=== PATIENT | male | born 1960 | race Caucasian/White ===

== ENCOUNTER → 2016-10-13 | Outpatient (CLI) | payer MEDICARE, MEDICAID ==
--- NOTE | 2016-10-13 10:47 | RADIOLOGY REPORT (SQ) ---
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 Images reviewed with lung, soft tissue and bone windows. Reconstructed coronal and sagittal MPR images reviewed. All images stored on PACS. All CT scanners at this facility use dose modulation, iterative reconstruction, and/or weight based d osing when appropriate to reduce radiation dose to as low as reasonably achievable (ALARA). [facility]: Dose Right [facility]: CareDose [facility]: Dose Right [facility]: Teradose 4D [facility]: Wiki-PR CONTRAST TYPE AND DOSE: contrast/concentration: Isovue 370.00 mg/ml; Total Contrast Delivered: 80.0 ml; Total Saline Delivered: 55.0 ml RENAL FUNCTION: Creatinine 0.75 RADIATION DOSE: Up-to-date CT equipment and radiation dose reduction techniques were employed. CTDIv ol: 9.1 mGy. DLP: 351 mGy-cm. . LIMITATIONS: None. FINDINGS: LUNGS AND PLEURA: Prior CT exam from 06/15/2006 was reviewed. At the tongue, patient had c avitary pneumonia in the right lower lobe adjacent to the major fissure, and dense consolidation in t he superior segment right lower lobe at the upper edge of the major fissure. On today's study, minimal bandlike linear scarring is present in the superior segment right lower lob e in the area of prior dense consolidation from 2006. On today's study, bandlike scarring is present in the right lower lobe anterior segment, adjacent to the major fissure image area of cavitary infiltrate seen in 2006. On axial image 54 and 73, less than 4 mm smooth round subpleural nodules are present in the left walt g, unchanged 2006. This is of no clinical significance. No acute infiltrates. No pleural effusions. No pneumothorax. HILAR AND MEDIASTINAL STRUCTURES: No identified masses or abnormal nodes. HEART AND VASCULAR STRUCTURES: No aneurysm or dissection. No central pulmonary emboli. No pericardi al effusion. HARDWARE: None in the chest. UPPER ABDOMEN: No significant findings. Limited exam. THYROID AND OTHER SOFT TISSUES: No masses. No adenopathy. BONES: No significant finding. OTHER: No other significant finding. IMPRESSION: No CT evidence of acute disease. Benign-appearing postinflammatory changes in the right lower lobe and left lung. If outside recent CT screening chest becomes available for comparison, an addendum to this report cou ld be generated. TECHNICAL DOCUMENTATION: JOB ID: [id number] Quality ID # [id number]: Final reports with documentation of one or more dose reduction techniques (e.g., Au tomated exposure control, adjustment of the mA and/or kV according to patient size, use of iterative reconstruction technique) 2010 [employer]- All Rights Reserved
== END ==
LOC: RAD 08:07
PROVIDERS: ATTEND Nurse Practitioner Acute Care
DX: C34.2 Malignant neoplasm of middle lobe, bronchus or lung (principal); R79.89 Other specified abnormal findings of blood chemistry
CPT/HCPCS: 71260